=== PATIENT | male | born 1940 | race Hispanic/Latino ===

== ENCOUNTER → 2018-09-13 | Outpatient (CLI) | payer OTHER ==
[~2018-09-13] MED LIST: AMLO10TA7 PO; ASPI-1197 PO; CELE-84 PO; CLOP75TA32 PO; DiphenhydrAMINE HCL 50 MG/ML VIAL IV SCH; DiphenhydrAMINE HCL 50 MG/ML VIAL ONE; HYDR12.530 PO; IOHEXOL-350 50ML VIAL IV ONE; OMEP40CA37 PO; PRED20TA3 PO; SILD50TA PO; SIMV40TA5 PO
--- NOTE | 2018-09-13 10:58 | NUR ---
PATIENT DEVELOPED HIVES BEHIND RIGHT EAR AND IN CHEST. PATIENT STATES ITCHING SENSATION TO LOWER RIGHT ABDOMEN. PATIENT WAS PRE MEDICATED PRIOR TO IV CONTRAST. CALLED DR. LORENZ FOR ORDERS, PER DR. REYES MAY GIVE BENADRYL 25MG IV TIMES 1 DOSE. BUT TO HAVE PATIENT GET SOMEONE TO PICK HIM UP DUE TO BENADRYL CAUSING DROWSINESS, PATIENT CALLED HIS SON TO COME PICK HIM UP, PER PATIENT HIS SON WILL COME PICK HIM UP.
== END | disposition home or self-care (01) ==
LOC: OIH 10:11
PROVIDERS: ATTEND Internal Medicine Gastroenterology
DX: N28.1 Cyst of kidney, acquired (principal); M51.36 Other intervertebral disc degeneration, lumbar region; I70.0 Atherosclerosis of aorta
CPT/HCPCS: 74170; J1200; Q9967